=== PATIENT | female | born 1980 | race Caucasian/White ===

== ENCOUNTER → 2020-09-06 13:39 | Outpatient (CLI) | payer OTHER, MEDICAID, SELFPAY ==
[2020-09-06 15:52] LABS: COVID19 -Nasal RAPID Negative (Negative)
== END ==
PROVIDERS: PCP Student in an Organized Health Care Education/Training Program; Visit Provider Physical Medicine & Rehabilitation
DX: Z20.822 Contact with and (suspected) exposure to COVID-19 (principal)
CPT/HCPCS: 87635; C9803

== ENCOUNTER 2020-09-07 10:09 | Outpatient (CLI) | payer OTHER, MEDICAID, SELFPAY ==
[2020-09-07] VITALS (9 sets, daily range): BP systolic 105–119; BP diastolic 55–71; PULSE 79–95; RESP 10–19; TEMP 36.8; O2SAT 98–100
--- NOTE | 2020-09-07 10:13 | DI.RAD.S_ITS ---
PROCEDURE: XR CERVICAL SPINE 4V OR 5V INDICATIONS: neck pain TECHNIQUE: 5 views of the cervical spine acquired. COMPARISON: [facility], MR, MR CERVICAL SPINE WITHOUT CONTRAST, 02/06/2020, 17:23. [facility], CR, XR THORACIC SPINE 2 VIEWS, 09/01/2019, 14:49. [facility], CR, XR CERVICAL SPINE WITH FLEXION EXTENSION, 09/05/2019, 16:43. FINDINGS: Bones: No fractures or dislocations to the T1 level. Mild straightening of cervical curvature. Oblique images demonstrate no bony foraminal stenoses. Soft tissues: No prevertebral soft tissue swelling. IMPRESSION: Mild straightening of cervical curvature. Dictated by: Batool Whitt M.D. on 09/07/2020 at 12:27 Approved by: Batool Whitt M.D. on 09/07/2020 at 12:29
--- NOTE | 2020-09-07 10:13 | DI.RAD.S_ITS ---
PROCEDURE: PAIN C/T FACET INJ/BLK 1ST L INDICATIONS: SPINAL STENOSIS COMPARISON: [facility], CR, XR CERVICAL SPINE 4V OR 5V, 09/07/2020, 10:15. FINDINGS: Fluoroscopic spot filming was performed to verify placement of spinal needles at the C4-C5, C5-C6, and C6-C7 level(s), as labeled on the films. Appropriate location(s) of the needle tip(s) was confirmed by injection of iodinated contrast. IMPRESSION: Intraprocedural examination within normal limits. Dictated by: Tesfaye Gale M.D. on 09/07/2020 at 11:53 Approved by: Tesfaye Gale M.D. on 09/07/2020 at 11:53
[2020-09-07] MEDS: fentaNYL 100 MCG/2 ML INJ 50 MCG IV (11:04)
[2020-09-07] MEDS: MIDAZOLAM 5 MG/5 ML VIAL IV (11:06)
[2020-09-07] MEDS: DEXAMETHASONE 10 MG/ML VIAL 30 MG INJ (11:08)
[2020-09-07] MEDS: IOPAMIDOL 15 ML VIAL 3 ML INJ (11:09)
[2020-09-07] MEDS: BUPIVACAINE 0.5% (PF) VIAL 2 ML INJ (11:10)
--- NOTE | 2020-09-07 11:18 | P.PCN_ITS ---
Date/Time/Diagnoses Date of procedure: 09/07/20 Time of procedure: 11:18 Pre-procedure diagnosis: 1. FACET ARTHROPATHY 2. AXIAL NECK PAIN Post-procedure diagnosis: same Procedure Notes Procedure: 1. FLUOROSCOPICALLY GUIDED, CONTRAST-CONTROLLED LEFT C4/5, C5/6 AND C6/7 FACET JOINT INJECTIONS WITH CONSCIOUS SEDATION. Indications: Linh is referred by Dr. Hernandez for treatment of Axial Neck Pain Physician: Priyank Moya Total Fluoroscopy time (seconds): 8 Total sedation minutes: 11 Complications: none Procedure in detail & Post-procedure care: DESCRIPTION OF PROCEDURE Fluoroscopically guided, contrast-controlled left C4/5, C5/6 and C6/7 facet joint injections with conscious sedation. Following review of allergy and review of potential side effects and complications, including, but not necessarily limited to, infection, allergic reaction, local tissue breakdown, stroke, temporary or permanent nerve injury and paralysis, the patient indicated that the patient understood and agreed to proceed. An informed consent document was signed by the patient, witnessed by a nurse, and placed in the patient's chart. Additionally, other treatment options including medications, modalities, and physical therapy were reviewed with the patient. After review of previous anaesthesic history and IV conscious sedation the patient was deemed safe to proceed with today?s procedure with IV conscious donato tion as ASA class II designation. Safety time-out was performed to confirm patient ID, procedure to be performed and site of procedure. IV sedation was accomplished with a combination of 4mg of Versed and 50mcg of Fentanyl was administered by the RN after DO order, titrated to patient comfort during the course of the procedure while the patient remained responsive to all verbal commands In the prone position, following sterile prep and drape of the cervical spine region, the posterior aspect of the left C4/5, C5/6 and C6/7 facet joints were identified fluoroscopically. The skin was anesthetized via a 25-gauge 1.5-inch needle with 1% lidocaine solution into the corresponding facet joints. At this point, a 25-gauge 2.5-inch spinal needle was atraumatically introduced and advanced under fluoroscopic guidance into the corresponding facet joints. Following negative aspiration, injections of approximately 0.2cc of Isovue 200 confirmed interarticular placement without vascular uptake. At this point, a total of 1cc including 0.5cc or 5mg of dexamethasone combined with 0.5cc of 1% lidocaine solution was injected without complication into each of the corresponding facet joints. The procedure tolerated the procedure well without signs or symptoms of complications prior to transfer to the recovery area continued monitoring without incident. The patient was then transferred to the recovery area where they were observed for an appropriate period of time after the injection. The patient reported a VAS score of 7 prior to the procedure and a post- procedure VAS of 0. POST OP INSTRUCTIONS They were provided a Pain Log to continue to record their response to the target-specific procedure prior to their follow-up visit with their referring physician. Additionally, specific post-injection care instructions and a contact number to our office were provided if concerns arise regarding possible complications associated with the procedure are suspected.
== END 2020-09-07 11:44 | disposition home or self-care (01) ==
LOC: RAD 10:12
PROVIDERS: PCP Student in an Organized Health Care Education/Training Program; Referring Provider Physical Medicine & Rehabilitation; Visit Provider Physical Medicine & Rehabilitation
DX: M47.812 Spondylosis without myelopathy or radiculopathy, cervical region (principal); M54.2 Cervicalgia
CPT/HCPCS: 64490; 64491; 64492; 72050; 99152; J1100; J2250; J3010

== ENCOUNTER → 2021-05-03 09:25 | Outpatient (CLI) | payer OTHER, MEDICAID, SELFPAY ==
[2021-05-03 15:59] LABS: COVID19 -Nasal RAPID Negative (Negative)
== END ==
PROVIDERS: PCP Student in an Organized Health Care Education/Training Program; Visit Provider Physical Medicine & Rehabilitation
DX: Z20.822 Contact with and (suspected) exposure to COVID-19 (principal)
CPT/HCPCS: 87635; C9803

== ENCOUNTER 2021-05-05 09:12 | Outpatient (CLI) | payer OTHER, MEDICAID, SELFPAY ==
[2021-05-05] VITALS (11 sets, daily range): BP systolic 93–137; BP diastolic 42–63; PULSE 75–96; RESP 8–21; TEMP 36.2; O2SAT 97–100
--- NOTE | 2021-05-05 09:18 | DI.RAD.S_ITS ---
PROCEDURE: PAIN C/T INTERLAMINAR INJECT INDICATIONS: SPINAL STENOSIS COMPARISON: [facility], XA, PAIN C/T FACET INJ/BLK 1ST L, 09/07/2020, 11:04. FINDINGS: Fluoroscopic spot filming was performed to verify placement of a spinal needle at the C6-C7 level, as labeled on the films. Appropriate location of the needle tip was confirmed by injection of iodinated contrast. IMPRESSION: No significant intraprocedural abnormality. Dictated by: Tesfaye Gale M.D. on 05/05/2021 at 10:42 Approved by: Tesfaye Gale M.D. on 05/05/2021 at 10:42
[2021-05-05] MEDS: fentaNYL 100 MCG/2 ML INJ 50 MCG IV (10:09)
[2021-05-05] MEDS: MIDAZOLAM 5 MG/5 ML VIAL IV (10:09)
[2021-05-05] MEDS: IOPAMIDOL 15 ML VIAL 3 ML INJ (10:13)
[2021-05-05] MEDS: DEXAMETHASONE 10 MG/ML VIAL 30 MG INJ (10:14)
[2021-05-05] MEDS: BUPIVACAINE 0.25% (PF) VIAL 2 ML INJ (10:14)
--- NOTE | 2021-05-05 10:28 | P.PCN_ITS ---
Date/Time/Diagnoses Date of procedure: 05/05/21 Time of procedure: 10:28 Pre-procedure diagnosis: 1. CERVICAL STENOSIS, 2. CERVICAL HNP WITH UPPER EXTREMITY RADICULAR FEATURES Post-procedure diagnosis: same Procedure Notes Procedure: 1. FLUORSCOPICALLY GUIDED CONTRAST CONTROLLED INTERLAMINAR EPIDURAL STEROID INJECTION - C6/7 TL NAVA Indications: Linh is referred by Dr. Hernandez for treatment of Cervical HNP with Upper Extremity Paresthesias. Physician: Priyank Moya Total Fluoroscopy time (seconds): 32 Total sedation minutes: 15 Complications: none Procedure in detail & Post-procedure care: FINDINGS Cervical Stenosis due to disc deterioration and nerve root irritation and nerve root irritation DESCRIPTION OF PROCEDURE Fluoroscopically guided, contrast-controlled C6/7 translaminar epidural steroid injection with conscious sedation. Following review of allergy and review of potential side effects and complications, including, but not necessarily limited to, infection, allergic reaction, local tissue breakdown, temporary as well as permanent nerve injury, stroke, paralysis, and possible , the patient indicated that patient understood and agreed to proceed. An informed consent document was signed by the patient, witnessed by a nurse, and placed in the patient's chart. Additionally, other treatment options including modalities, medications, and physical therapy were reviewed with the patient. After review of previous anaesthesic history and IV conscious sedation the patient was deemed safe to proceed with today?s procedure with IV conscious sedation as ASA class II designation. Safety time-out was performed to confirm patient ID, procedure to be performed and site of procedure. IV sedation was accomplished with a combination of 3mg of Versed and 50mcg of Fentanyl administered by the RN after DO order, titrated to patient comfort during the course of the procedure while the patient remained responsive to all verbal commands. In the prone position, following sterile prep and drape of the cervical region, the C6/7 translaminar space was identified fluoroscopically. The skin was anesthetized via a 25-gauge 1.5-inch needle with 1% lidocaine solution. At this point, a 25-gauge, 2.5-inch short bevel spinal needle was atraumatically introduced and advanced under fluoroscopic guidance into epidural space at the C6/7 translaminar space. Depth was confirmed on lateral view. Radiological data, including multiple fluoroscopic views of the cervical spine, reveal a spinal needle at the C6/7 translaminar space. Lateral views then show placement of the needle in the epidural space. Subsequent views show contrast material flowing superiorly and inferiorly in the epidural space. DSA fluoroscopy with live contrast injection, once again, confirmed no vascular or intrathecal uptake. At this point, using loss of resistance technique with saline and air, the epidural space was entered. Following negative aspiration, injection of appro ximately 1.5 cc of Isovue-200 with live fluoroscopy in the AP view confirmed epidural flow in the epidural space without vascular or intrathecal uptake observed. Subsequently, a test dose of 1 cc of 1% lidocaine solution was injected and patient was observed for two minutes without signs or symptoms of complications, including abdominal pain, shortness of breath, bilateral upper or lower extremity weakness, nausea and vomiting, prior to steroid injection. At this point, 3cc or 30mg of dexamethasone was then injected without incident. The patient tolerated the procedure well without signs or symptoms of complications prior to being transferred to the recovery area for further monitoring, The patient was then transferred to the recovery area where they were observed for an appropriate period of time after the injection. The patient reported a VAS score of 8 prior to the procedure and a post-procedure VAS of 0. POST OP INSTRUCTIONS The patient was provided a Pain Log to continue to record their response to the target-specific procedure prior to follow-up visit with the referring provider. Additionally, specific post-injection care instructions and a contact number to our office were provided if concerns arise regarding possible complications associated with the procedure are suspected.
== END 2021-05-05 11:00 | disposition home or self-care (01) ==
PROVIDERS: PCP Student in an Organized Health Care Education/Training Program; Referring Provider Physical Medicine & Rehabilitation; Visit Provider Physical Medicine & Rehabilitation
DX: M48.02 Spinal stenosis, cervical region (principal); M50.123 Cervical disc disorder at C6-C7 level with radiculopathy
CPT/HCPCS: 62321; 99152; J1100; J2250; J3010

== ENCOUNTER 2023-06-14 09:03 | Outpatient (CLI) | payer OTHER, MEDICAID, SELFPAY ==
[2023-06-14] VITALS (8 sets, daily range): BP systolic 102–133; BP diastolic 52–80; PULSE 76–93; RESP 12–20; TEMP 36.7; O2SAT 100
--- NOTE | 2023-06-14 09:04 | DI.RAD.S_ITS ---
PROCEDURE: PAIN C/T FACET INJ/BLK 1ST L INDICATIONS: SPINAL STENOSIS COMPARISON: [facility], , PAIN C/T FACET INJ/BLK 1ST L, 09/07/2020, 11:04. FINDINGS: Fluoroscopic spot filming was performed to verify placement of spinal needles at the right T10-T11, T11-T12 level(s), as labeled on the films. Appropriate location(s) of the needle tip(s) was confirmed by injection of iodinated contrast. IMPRESSION: Intra procedural examination demonstrating appropriate positions of the needles. Dictated by: John Vásquez M.D. on 06/14/2023 at 12:23 Approved by: John Vásquez M.D. on 06/14/2023 at 12:24
[2023-06-14] MEDS: MIDAZOLAM 2 MG/2 ML VIAL IV (09:53)
[2023-06-14] MEDS: DEXAMETHASONE 10 MG/ML VIAL 20 MG INJ (09:55)
[2023-06-14] MEDS: BUPIVACAINE 0.5% (PF) 10 ML VIAL 2 ML INJ (09:56)
[2023-06-14] MEDS: iopamidoL 15 ML VIAL 3 ML INJ (09:56)
--- NOTE | 2023-06-14 10:07 | P.PCN_ITS ---
Date/Time/Diagnoses Date of procedure: 06/14/23 Time of procedure: 10:07 Pre-procedure diagnosis: 1. FACET ARTHROPATHY 2. AXIAL THORACIC PAIN Post-procedure diagnosis: same Procedure Notes Procedure: 1. FLUOROSCOPICALLY GUIDED, CONTRAST-CONTROLLED RIGHT T10/11, T11/12 FACET JOINT INJECTIONS WITH CONSCIOUS SEDATION. Indications: Linh is referred by Dr. Estes for treatment of Axial Thoracic Pain Physician: Priyank Moya Total Fluoroscopy time (seconds): 11 Total sedation minutes: 10 Complications: none Procedure in detail & Post-procedure care: DESCRIPTION OF PROCEDURE Fluoroscopically guided, contrast-controlled right T10/T11 and T11/12 facet joint injections with conscious sedation. Following review of allergy and review of potential side effects and complications, including, but not necessarily limited to, infection, allergic reaction, local tissue breakdown, stroke, temporary or permanent nerve injury and paralysis, the patient indicated that the patient understood and agreed to proceed. An informed consent document was signed by the patient, witnessed by a nurse, and placed in the patient's chart. Additionally, other treatment options including medications, modalities, and physical therapy were reviewed with the patient. After review of previous anaesthesic history and IV conscious sedation the patient was deemed safe to proceed with today?s procedure with IV conscious sedation as ASA class II designation. Safety time-out was performed to confirm patient ID, procedure to be performed and site of procedure. IV sedation was accomplished with a combination of 2mg of Versed was administered by the RN after DO order, titrated to patient comfort during the course of the procedure while the patient remained responsive to all verbal commands. In the prone position, following sterile prep and drape of the cervical spine region, the posterior aspect of the right T10/T11, T11/T12 facet joints were identified fluoroscopically. The skin was anesthetized via a 25-gauge 1.5-inch needle with 1% lidocaine solution into the corresponding facet joints. At this point, a 25-gauge 2.5-inch spinal needle was atraumatically introduced and advanced under fluoroscopic guidance into the corresponding facet joints. Following negative aspiration, injections of approximately 0.2-cc of Isovue 200 confirmed interarticular placement without vascular uptake. At this point, a total of 1cc including 0.5cc or 5mg of dexamethasone combined with 0.5cc of 1% lidocaine solution was injected without complication into each of the corresponding facet joints. The procedure tolerated the procedure well without signs or symptoms of complications prior to transfer to the recovery area continued monitoring without incident. The patient was then transferred to the recovery area where they were observed for an appropriate period of time after the injection. The patient reported a VAS score of 8 prior to the procedure and a post- procedure VAS of 1. POST OP INSTRUCTIONS They were provided a Pain Log to continue to record their response to the target-specific procedure prior to their follow-up visit with their referring physician. Additionally, specific post-injection care instructions and a contact number to our office were provided if concerns arise regarding possible complications associated with the procedure are suspected.
== END 2023-06-14 10:23 | disposition home or self-care (01) ==
LOC: RAD 09:04
PROVIDERS: PCP Family Medicine; Referring Provider Physical Medicine & Rehabilitation; Visit Provider Physical Medicine & Rehabilitation
DX: M47.814 Spondylosis without myelopathy or radiculopathy, thoracic region (principal); M54.6 Pain in thoracic spine
CPT/HCPCS: 64490; 64491; 99152; J1100; J2250